=== PATIENT | male | born 1990 | race Caucasian/White ===

== ENCOUNTER → 2018-03-22 | Outpatient (CLI) | payer BC ==
--- NOTE | 2018-03-22 17:40 | CONS ---
CONSULTATION DATE OF SERVICE: 03/22/2018 A 27-year-old gentleman who has been evaluated in the sleep center for possible obstructive sleep apnea-hypopnea syndrome by referral from industrial [facility]. The patient is a commercial engineer. HISTORY OF PRESENT ILLNESS AND SLEEP-WAKE EVALUATION: Patient's usual sleep schedule on working days from 9:00 p.m. until 3:30 a.m. and on days off from 10:00 p.m. until 7:00 a.m. No problems with falling asleep, although has TV set in bedroom. He sleeps with his with loud snoring. No episodes of stopped breathing have been seen. The patient wakes up from sleep once with nocturia. No history of hypnagogic hallucinations, sleep paralysis or cataplexy. Patient denied any significant sleepiness. Hopkins Sleepiness Scale is 3. PAST MEDICAL HISTORY: Positive for episodes of increasing blood pressure. Recently, patient was started on treatment for hypertension. PAST SURGICAL HISTORY: None. SOCIAL HISTORY: Positive for smoking 1 pack a day for 8 years. Alcohol consumption occasional. FAMILY HISTORY: Hypertension, heart problems, stroke. REVIEW OF SYSTEMS: Basically negative. PHYSICAL EXAMINATION: GENERAL A 27-year-old gentleman without distress. VITAL SIGNS BP 142/83, HR 74, RR 16, height 5 feet 11 inches, weight 296, BMI 41.2, temperature 98.2, oxygen saturation at room air 96%. HEENT PERRLA, EOMI, evaluation of oropharynx showed tongue protrudes midline, low position of soft palate. NECK: Wide neck, 17-1/4 inches in circumference. Supple, no JVD. Thyroid is not palpable. LUNGS Clear to percussion and to auscultation. Good air exchange. No wheezing or rhonchi. HEART S1, S2 regular. No murmurs, gallops, or rubs. ABDOMEN Slightly obese, soft and nontender. Bowel sounds are present. No organomegaly appreciated. EXTREMITIES No clubbing or cyanosis. [employer]ER Awake, alert, and oriented X3. Cranial nerves 2 to 7 intact. There is no fasciculation or atrophy. noted. No focal deficits observed. IMPRESSION: 1. Snoring, occasional awakenings from sleep with nocturia, low position of soft palate, wide neck, possible obstructive sleep apnea-hypopnea syndrome. 2. Obesity, BMI 41.2. 3. Hypertension. PLAN: 1. Sleep study for evaluation of patient breathing during the sleep. 2. Following plan depending from results of the sleep study, CPAP treatment if sleep study will be positive for obstructive sleep apnea-hypopnea syndrome. 3. Losing weight. 4. Sleep hygiene with regular time in bed for at least 8 hours. 5. No driving if feeling any sleepiness. Patient is aware about civil and criminal liability for unsafe driving, promised to follow recommendations. Thank you very much for referring this patient for consultation. Sincerely, Bo Holt MD, PhD, FAASM Diplomat of [place] [employer] [place] Information [employer] [facility] [place] MMODL / IJN: [id number] /
== END | disposition home or self-care (01) ==
LOC: SLEEP 16:21
PROVIDERS: ATTEND Internal Medicine
DX: R06.83 Snoring (principal); R35.1 Nocturia; I10 Essential (primary) hypertension; F17.210 Nicotine dependence, cigarettes, uncomplicated; E66.9 Obesity, unspecified; Z68.41 Body mass index [BMI] 40.0-44.9, adult
CPT/HCPCS: 99211